=== PATIENT | female | born 1970 | race Caucasian/White ===

== ENCOUNTER 2023-07-05 12:53 | Emergency (ER) | payer BC ==
--- NOTE | 2023-07-05 13:34 | RAD REPORT ---
EXAM DESCRIPTION: Kecia Yip (2 Views)07/05/2023 1:19 pm CLINICAL HISTORY: Cough COMPARISON: None FINDINGS: The lungs appear clear of acute infiltrate. The heart is normal size IMPRESSION: No acute abnormalities displayed
--- OUTSIDE RECORDS SUMMARY | 2023-07-05 13:37 | XMS REPORT | Continuity of Care Document ---
:1970 Author Organization [facility] t Address [address] [facility] [address] [place] [id number] Care Team Providers Name Role Phone Papi_maria esther Attending Clinician Unavailable Obmichellean_maria esther Admitting Clinician Unavailable Payers Payer Name Policy Type Policy Number Effective Date Expiration Date S ource Problems This patient has no known problems. Allergies, Adverse Reactions, Alerts This patient has no known allergies or adverse reactions. Medications This patient has no known medications. Procedures This patient has no known procedures. Encounters Start End Encounter Admission Attending Care Care Encounter Source Date/Time Date/Time Type Type Clinicians Facility Department ID 2021-12-07 2021-12-07 Outpatient Obflor_faustina [facility] [phone] [place] 11:13:00 11:13:00 negro [facility] Program Results This patient has no known results.
[2023-07-05] MEDS ORDERED: dexAMETHasone 10 MG/ML VIAL ONE (14:07)
[2023-07-05] MEDS ORDERED: METOCLOPRAMIDE 10 MG/2mL INJ ONE (14:07)
[2023-07-05] MEDS ORDERED: NA CHLORIDE 0.9% 1,000 ML ONE (14:08)
[2023-07-05] MEDS ORDERED: KETOROLAC 30 MG/ML INJ ONE (14:08)
[2023-07-05] MEDS ORDERED: MAGNESIUM SULFATE 1 gm IVPB 1 GM/100 ML BAG IV ONE (14:08)
[2023-07-05] MEDS ORDERED: NA CHLORIDE 0.9% 50 ML ONE (14:09)
[2023-07-05 14:34] LABS: Lymphocytes % 14.3 % (15.3-44.8); MCV 85.7 fL (80-100); MPV 7.6 fL (7.6-11.3); Platelets 273 thou/uL (152-406); RBC Red Blood Cell Count 4.78 M/uL (3.86-4.86)
[2023-07-05 14:47] LABS: Magnesium 1.9 mg/dL (1.6-2.4); Potassium 3.6 mEq/L (3.5-5.1)
--- NOTE | 2023-07-05 14:52 | ER ---
Nurse's Notes [facility] Name: Awilda Monteiro Age: 52 yrs Sex: Female : 1970 Arrival Date: 07/05/2023 Time: 12:53 Bed 13 Private MD: Diagnosis: SARS-associated coronavirus as the cause of diseases classified elsewhere Presentation: 07/05 13:01 Chief complaint: headache, body aches, upper abdominal pain, and N/V x 2 days. Took hb rapid home test today, COVID +. Coronavirus screen: Client presents with at least one sign or symptom that may indicate coronavirus-19. Standard/surgical mask placed on the client. Provider contacted for isolation considerations. Ebola Screen: No symptoms or risks identified at this time. Initial Sepsis Screen: Does the patient meet any 2 criteria? No. Patient's initial sepsis screen is negative. Does the patient have a suspected source of infection? No. Patient's initial sepsis screen is negative. Risk Assessment: Do you want to hurt yourself or someone else? Patient reports no desire to harm self or others. Onset of symptoms was July 04, 2023. 13:01 Method Of Arrival: Ambulatory hb 13:01 Acuity: JEN 3 hb Triage Assessment: 16:07 GI: Reports. db Historical: - Allergies: 13:02 No Known Allergies; hb - Home Meds: 13:02 None [Active]; hb - PMHx: 13:02 DM2; hb - PSHx: 13:02 Tubal Ligation; Tonsillectomy; hb - Immunization history:: Adult Immunizations up to date. - Social history:: Smoking status: Patient denies any tobacco usage or history of. Screenin:40 [facility] ED Fall Risk Assessment (Adult) History of falling in the last 3 months, db including since admission No falls in past 3 months (0 pts) Confusion or Disorientation No (0 pts) Intoxicated or Sedated No (0 pts) Impaired Gait No (0 pts) Mobility Assist Device Used No (0 pt) Altered Elimination No (0 pt) Score/Fall Risk Level 0 - 2 = Low Risk Oriented to surroundings, Maintained a safe environment. Abuse screen: Denies threats or abuse. Denies injuries from another. Nutritional screening: No deficits noted. Tuberculosis screening: No symptoms or risk factors identified. Assessment: 14:05 Reassessment: Patient appears in no apparent distress at this time. Patient and/or db family updated on plan of care and expected duration. Pain level reassessed. Patient is alert, oriented x 3, equal unlabored respirations, skin warm/dry/pink. PATIENT WITH POSITIVE COVID AND IS VOMITING SINCE LAST NIGHT. General: Appears in no apparent distress. comfortable, Behavior is cooperative, anxious, VOMITING. Pain: Complains of pain in head and abdomen. Neuro: Level of Consciousness is awake, alert, obeys commands, Oriented to person, place, time, situation. GI: Abdomen is flat, non-distended, Pt is actively vomiting. 14:05 Reassessment: Patient appears in no apparent distress at this time. Patient and/or db family updated on plan of care and expected duration. Pain level reassessed. Patient states feeling better. 14:52 Reassessment: PATIENT PENDING FLUIDS TO FINISH FOR DC. db 15:45 Reassessment: Patient appears in no apparent distress at this time. Patient and/or db family updated on plan of care and expected duration. Pain level reassessed. Patient is alert, oriented x 3, equal unlabored respirations, skin warm/dry/pink. Patient states feeling better. Patient states symptoms have improved. Vital Signs: 13:01 BP 156 / 86; Pulse 106; Resp 18; Temp 98.6; Pulse Ox 100% on R/A; Weight 77.11 kg; hb Height 5 ft. 4 in. ; Pain 9/10; 16:03 BP 117 / 76; Pulse 83; Resp 16; Pulse Ox 95% on R/A; db 13:01 Body Mass Index 29.18 (77.11 kg, 162.56 cm) hb 13:01 Pain Scale: Adult hb ED Course: 12:55 Patient arrived in ED. rg4 12:59 Margy Storm PA-C is PHCP. sb4 12:59 Ayden Swenson MD is Attending Physician. sb4 13:02 Triage completed. hb 13:02 Arm band placed on. hb 13:20 Chest Pa And Lat (2 Views) XRAY In Process Unspecified. EDMS 14:10 Inserted saline lock: 22 gauge in right forearm, using aseptic technique. Blood db collected. 14:30 Shameka Connelly, RN is Primary Nurse. db 14:40 Patient has correct armband on for positive identification. Call light in reach. Side db rails up X 1. Pulse ox on. NIBP on. Warm blanket given. 16:06 No provider procedures requiring assistance completed. IV discontinued, intact, db bleeding controlled, No redness/swelling at site. 16:07 Provided Education on: DISCHARGE. db Administered Medications: 14:12 Drug: NS 0.9% IV 1000 ml Route: IV; Rate: 1 bolus; Site: right forearm; db 15:15 Follow up: Response: No adverse reaction; IV Status: Completed infusion; IV Intake: db 1000ml 14:15 Drug: metoCLOPramide IVP 10 mg Route: IVP; Site: right forearm; db 16:07 Follow up: Response: No adverse reaction db 14:17 Drug: Decadron - Dexamethasone IVP 10 mg Route: IVP; Site: right forearm; db 16:08 Follow up: Response: No adverse reaction db 14:18 Drug: Magnesium Sulfate IVPB 1 grams Route: IVPB; Infused Over: 1 hrs; Site: right db forearm; 16:08 Follow up: Response: No adverse reaction; IV Status: Completed infusion; IV Intake: db 100ml 14:31 Drug: Ketorolac IVP 15 mg Route: IVP; Site: right forearm; db 16:08 Follow up: Response: No adverse reaction db Medication: 16:06 VIS not applicable for this client. db Intake: 15:15 IV: 1000ml; Total: 1000ml. db 16:08 IV: 100ml; Total: 1100ml. db Outcome: 14:50 Discharge ordered by sb4 16:06 Discharged to home ambulatory. db 16:06 Condition: stable 16:06 Discharge instructions given to patient, Instructed on discharge instructions, follow up and referral plans. Prescriptions given X 1. 16:08 Patient left the ED. db Signatures: Dispatcher [employer] EDIN Stephanie Barcenas RN RN hb Garcia, Rubi rg4 Shameka Connelly RN RN db Margy Storm PA-C PA-C sb4 Corrections: (The following items were deleted from the chart) 13:03 13:02 Social history: Smoking status: Patient/guardian denies using tobacco, hb hb 14:40 14:05 Reassessment: Patient appears in no apparent distress at this time. Patient db and/or family updated on plan of care and expected duration. Pain level reassessed. Patient is alert, oriented x 3, equal unlabored respirations, skin warm/dry/pink. Patient states feeling better. db
--- NOTE | 2023-07-05 14:52 | EDPHYS ---
Physician Documentation [facility] Name: Awilda oMnteiro Age: 52 yrs Sex: Female : 1970 Arrival Date: 07/05/2023 Time: 12:53 Bed 13 Private MD: ED Physician Ayden Swenson HPI: 07/05 13:40 This 52 yrs old Female presents to ER via Ambulatory with complaints of Vomiting, Body sb4 Aches. 13:40 The patient presents to the emergency department with nausea, vomiting. sb4 13:40 Onset: The symptoms/episode began/occurred 2 day(s) ago. Possible causes: covid. The sb4 symptoms are aggravated by nothing. The symptoms are alleviated by nothing. Associated signs and symptoms: Pertinent positives: abdominal pain, nausea, vomiting, Pertinent negatives: dysuria, fever. The patient has not experienced similar symptoms in the past. The patient has not recently seen a physician. patient been feeling ill for a few days- headache, body aches, nausea, vomiting, abdominal pain. took a home covid test that was positive. Historical: - Allergies: 13:02 No Known Allergies; hb - Home Meds: 13:02 None [Active]; hb - PMHx: 13:02 DM2; hb - PSHx: 13:02 Tubal Ligation; Tonsillectomy; hb - Immunization history:: Adult Immunizations up to date. - Social history:: Smoking status: Patient denies any tobacco usage or history of. ROS: 13:40 Cardiovascular: Negative for chest pain, palpitations, and edema. sb4 13:40 Constitutional: Positive for body aches, fatigue, malaise, poor PO intake. 13:40 ENT: Positive for sinus congestion, sore throat. 13:40 Respiratory: Positive for cough. 13:40 Abdomen/GI: Positive for abdominal pain, nausea and vomiting. 13:40 Neuro: Positive for headache. 13:40 All other systems are negative. Exam: 13:40 Head/Face: Normocephalic, atraumatic. Eyes: Extra-ocular motions intact. Periorbital sb4 areas with no swelling, redness, or edema. ENT: Mucous membranes moist. Cardiovascular: Regular rate and rhythm with a normal S1 and S2. Respiratory: Lungs have equal breath sounds bilaterally, clear to auscultation and percussion. No rales, rhonchi or wheezes noted. No increased work of breathing, no retractions or nasal flaring. Abdomen/GI: Soft, non-tender, no distension. Skin: Warm, dry with normal turgor. Normal color with no rashes, no lesions, and no evidence of cellulitis. MS/ Extremity: Pulses equal, no cyanosis. Neurovascular intact. Full, normal range of motion. 13:40 Constitutional: The patient appears alert, awake, obviously ill, uncomfortable. Vital Signs: 13:01 BP 156 / 86; Pulse 106; Resp 18; Temp 98.6; Pulse Ox 100% on R/A; Weight 77.11 kg; hb Height 5 ft. 4 in. ; Pain 9/10; 16:03 BP 117 / 76; Pulse 83; Resp 16; Pulse Ox 95% on R/A; db 13:01 Body Mass Index 29.18 (77.11 kg, 162.56 cm) hb 13:01 Pain Scale: Adult hb MDM: 13:05 Patient medically screened. sb4 13:40 Differential diagnosis: Nonspecific abd pain, gastritis, viral gastroenteritis, covid, sb4 flu, dehydration. 17:53 Data reviewed: vital signs, nurses notes, lab test result(s), radiologic studies, and sb4 as a result, I will discharge patient. Independent interpretation of the following test(s) in the Emergency Department X-Ray: My interpretation is my interpretation of the chest xray images are no consolidation or pneumothorax. Care significantly affected by the following chronic conditions: Diabetes. Counseling: I had a detailed discussion with the patient and/or guardian regarding the historical points, exam findings, and any diagnostic results supporting the discharge/admit diagnosis, lab results, radiology results, to return to the emergency department if symptoms worsen or persist or if there are any questions or concerns that arise at home. 07/05 13:50 Order name: CBC with Diff; Complete Time: 14:41 sb4 07/05 13:50 Order name: BMP; Complete Time: 14:48 sb4 07/05 13:50 Order name: Magnesium; Complete Time: 14:48 sb4 07/05 13:06 Order name: Chest Pa And Lat (2 Views) XRAY; Complete Time: 13:38 sb4 Administered Medications: 14:12 Drug: NS 0.9% IV 1000 ml Route: IV; Rate: 1 bolus; Site: right forearm; db 15:15 Follow up: Response: No adverse reaction; IV Status: Completed infusion; IV Intake: db 1000ml 14:15 Drug: metoCLOPramide IVP 10 mg Route: IVP; Site: right forearm; db 16:07 Follow up: Response: No adverse reaction db 14:17 Drug: Decadron - Dexamethasone IVP 10 mg Route: IVP; Site: right forearm; db 16:08 Follow up: Response: No adverse reaction db 14:18 Drug: Magnesium Sulfate IVPB 1 grams Route: IVPB; Infused Over: 1 hrs; Site: right db forearm; 16:08 Follow up: Response: No adverse reaction; IV Status: Completed infusion; IV Intake: db 100ml 14:31 Drug: Ketorolac IVP 15 mg Route: IVP; Site: right forearm; db 16:08 Follow up: Response: No adverse reaction db Disposition: 17:56 Co-signature as Attending Physician, Ayden Swenson MD I reviewed the patient's care rn provided by the Advanced Practice Provider and agree with the diagnosis and treatment plan. Disposition Summary: 07/05/23 14:50 Discharge Ordered Location: Home sb4 Problem: new sb4 Symptoms: have improved sb4 Condition: Stable sb4 Diagnosis - SARS-associated coronavirus as the cause of diseases classified elsewhere sb4 Followup: sb4 - With: Emergency Department - When: As needed - Reason: Fever > 102 F, Trouble breathing, Worsening of condition Discharge Instructions: - Discharge Summary Sheet sb4 - 10 Things You Can Do to Manage Your COVID-19 Symptoms at Home - [facility] (05/26/2021) sb4 - COVID-19: Quarantine and Isolation - [facility] (02/07/2022) sb4 - COVID-19: What to Do If You Are Sick - [facility] (01/30/2022) sb4 Forms: - Work release form sb4 - Medication Reconciliation Form sb4 - Thank You Letter sb4 - Antibiotic Education sb4 - Prescription Opioid Use sb4 - Patient Portal Instructions sb4 - Leadership Thank You Letter sb4 Prescriptions: - Medrol (Trung) 4 mg Oral Tablets, Dose Pack - take 1 tablet by ORAL route as directed - follow package instructions; 1 sb4 packet; Refills: 0, Product Selection Permitted Signatures: Dispatcher [employer] EDMS SwensonAyden jeffery MD MD rn Baxter, Heather, RN RN hb Shameka Connelly RN RN Margy Clay PA-C PANila morgan4 Corrections: (The following items were deleted from the chart) 13:03 13:02 Social history: Smoking status: Patient/guardian denies using tobacco, hb hb
[2023-07-05 16:26] VITALS: TEMP 98.6
[2023-07-05 16:29] VITALS: BP 117/76; O2SAT 95
== END 2023-07-05 16:08 | disposition home or self-care (01) ==
LOC: ER 12:53
DX: U07.1 COVID-19 (principal)
CPT/HCPCS: 96365; 85025; 80048; 36415; 83735; 71046; 96375; 99284; 96366; J3475; J2765; J1100; J7030

== ENCOUNTER 2023-07-09 16:11 | Emergency (ER) | payer BC ==
--- OUTSIDE RECORDS SUMMARY | 2023-07-09 16:19 | XMS REPORT | Continuity of Care Document ---
:1970 Author Organization [facility] t Address [address] [facility] [address] [place] [address] Care Team Providers Name Role Phone Daniel Attending Clinician Unavailable Papi_maria esther Admitting Clinician Unavailable Payers Payer Name [...] Clinicians Facility Department ID 2021-12-07 2021-12-07 Outpatient Papi_faustina GREER [facility] [phone] [place] 11:13:00 11:13:00 negro [facility] Program Results This patient has no known results.
[2023-07-09] MEDS ORDERED: ONDANSETRON 4 MG/2 ML VIAL ONE ×2 (17:30→20:32)
[2023-07-09] MEDS ORDERED: NA CHLORIDE 0.9% 1,000 ML ONE (17:31)
[2023-07-09] MEDS ORDERED: FAMOTIDINE 20 MG/2 ML VIAL IV ONE (17:31)
[2023-07-09 17:46] LABS: Absolute Lymphocytes (CBC) 1.5 K/uL (0.7-4.9); Hematocrit 46.9 % (36.0-45.0); Lymphocytes % 34.5 % (15.3-44.8); MCV 85.4 fL (80-100); MPV 8.1 fL (7.6-11.3); Platelets 224 thou/uL (152-406)
[2023-07-09 18:08] LABS: Albumin 3.9 g/dL (3.4-5.0); Bilirubin Total 0.8 mg/dL (0.2-1.0); Protein, Total 8.5 g/dL (6.4-8.2)
[2023-07-09 18:11] LABS: Potassium 3.4 mEq/L (3.5-5.1)
--- NOTE | 2023-07-09 19:49 | RAD REPORT ---
EXAM DESCRIPTION: US - Abdomen Exam Limited - 07/09/2023 7:12 pm CLINICAL HISTORY: ABD PAIN COMPARISON: No comparisons FINDINGS: The gallbladder demonstrates multiple shadowing gallstones. No pericholecystic fluid or ga llbladder wall thickening. The common bile duct is normal measuring 4 mm. The liver demonstrates no findings of intrahepatic biliary dilatation. IMPRESSION: Cholelithiasis.
[2023-07-09 20:05] LABS: Urine Bacteria 20-50 /HPF (<20); Urine Bilirubin NEGATIVE (Negative); Urine Blood Negative (Negative); Urine Clarity Turbid (Clear); Urine Color Yellow (Yellow); Urine Glucose 4+ (Over) (Negative); Urine Mucus 2+ /HPF (None Seen); Urine Protein 1+ (Negative); Urine RBC <5 /HPF (None Seen); Urine Urobilinogen Normal (Normal)
--- NOTE | 2023-07-09 20:16 | EDPHYS ---
Physician Documentation [facility] Name: Awilda Monteiro Age: 52 yrs Sex: Female : 1970 Arrival Date: 07/09/2023 Time: 16:11 Bed 8 Private MD: ED Physician Tony Connolly HPI: 07/09 16:35 This 52 yrs old Female presents to ER via Unassigned with complaints of kb Nausea/Vomiting, Covid+. 16:35 The patient presents to the emergency department with nausea, vomiting, diarrhea. kb Onset: The symptoms/episode began/occurred last week. Possible causes: covid. The symptoms are aggravated by nothing. The symptoms are alleviated by nothing. Associated signs and symptoms: Pertinent positives: abdominal pain, diarrhea, nausea, vomiting. Severity of symptoms: At their worst the symptoms were moderate in the emergency department the symptoms are unchanged. The patient has not experienced similar symptoms in the past. The patient has been recently seen by a physician:. Pt reports she was diagnosed with covid on Saturday and has had nausea and vomiting since then. has been unable to tolerate anything by mouth for 2 days. . Historical: - Allergies: 16:41 No Known Allergies; cm10 - PMHx: 16:41 DM2; cm10 - PSHx: 16:41 Tonsillectomy; tubal ligation; cm10 - Immunization history:: Adult Immunizations unknown. - Social history:: Smoking status: Patient denies any tobacco usage or history of. ROS: 18:32 Constitutional: Negative for fever, chills, and weight loss. kb 18:32 Abdomen/GI: Positive for abdominal pain, nausea, vomiting, and diarrhea. 18:32 All other systems are negative. Exam: 18:32 Constitutional: This is a well developed, well nourished patient who is awake, alert, kb and in no acute distress. Head/Face: Normocephalic, atraumatic. ENT: Moist Mucous membranes Cardiovascular: Regular rate and rhythm with a normal S1 and S2. No gallops, murmurs, or rubs. No pulse deficits. Respiratory: Respirations even and unlabored. No increased work of breathing. Talking in full sentences Skin: Warm, dry with normal turgor. Normal color. MS/ Extremity: Pulses equal, no cyanosis. Neurovascular intact. Full, normal range of motion. Neuro: Awake and alert, GCS 15, oriented to person, place, time, and situation. Moves all extremities. Normal gait. 18:32 Abdomen/GI: Inspection: abdomen appears normal, Bowel sounds: normal, Palpation: soft, in all quadrants, moderate abdominal tenderness, in the right upper quadrant. Vital Signs: 16:39 BP 144 / 93; Pulse 107; Resp 18 S; Temp 97.9(TE); Pulse Ox 100% on R/A; Weight 77.11 cm10 kg; Height 5 ft. 4 in. ; Pain 10/10; 17:39 BP 149 / 89; Pulse 102; Resp 18; Pulse Ox 100% on R/A; ld1 19:43 BP 130 / 91; Pulse 87; Resp 19 S; Pulse Ox 97% on R/A; jw7 16:39 Body Mass Index 29.18 (77.11 kg, 162.56 cm) cm10 16:39 Pain Scale: Adult cm10 MDM: 16:41 Patient medically screened. kb 18:33 Differential diagnosis: Nonspecific abd pain, gastritis, cholecystitis, viral kb gastroenteritis, covid. Data reviewed: vital signs, nurses notes. 20:42 Counseling: I had a detailed discussion with the patient and/or guardian regarding the kb historical points, exam findings, and any diagnostic results supporting the discharge/admit diagnosis, lab results, radiology results, the need for outpatient follow up, a family practitioner, a general surgeon, to return to the emergency department if symptoms worsen or persist or if there are any questions or concerns that arise at home. ED course: Pt tolerating po intake. 07/09 16:37 Order name: CBC with Diff; Complete Time: 17:55 kb 07/09 16:37 Order name: CMP; Complete Time: 18:12 kb 07/09 16:37 Order name: Lipase; Complete Time: 18:12 kb 07/09 16:37 Order name: Urinalysis w/ reflexes; Complete Time: 20:08 kb 07/09 17:55 Order name: US Abdomen Limited; Complete Time: 19:50 kb 07/09 16:37 Order name: IV Saline Lock; Complete Time: 17:30 kb 07/09 16:37 Order name: Labs collected and sent; Complete Time: 17:30 kb 07/09 19:56 Order name: PO challenge; Complete Time: 19:59 kb Administered Medications: 17:30 Drug: NS 0.9% IV 1000 ml Route: IV; Rate: 1 bolus; Site: right forearm; ap3 18:34 Follow up: IV Status: Completed infusion ap3 17:30 Drug: Famotidine IVP 20 mg Route: IVP; Site: right forearm; ap3 18:34 Follow up: Response: No adverse reaction ap3 17:30 Drug: Ondansetron IVP 4 mg Route: IVP; Site: right forearm; ap3 18:34 Follow up: Response: No adverse reaction; Nausea is decreased ap3 20:32 Drug: Ondansetron IVP 4 mg Route: IVP; Site: right wrist; jw7 20:33 Follow up: Response: No adverse reaction jw7 Disposition Summary: 07/09/23 20:15 Discharge Ordered Location: Home kb Condition: Stable kb Diagnosis - SARS-associated coronavirus as the cause of diseases classified elsewhere kb - Dehydration kb - UTI/ Urinary tract infection, site not specified kb - Other cholelithiasis without obstruction kb Followup: kb - With: Emergency Department - When: As needed - Reason: Worsening of condition Followup: kb - With: Private Physician - When: 2 - 3 days - Reason: Recheck today's complaints, Continuance of care, Re-evaluation by your physician Discharge Instructions: - Discharge Summary Sheet kb - Cholelithiasis, [id number] kb - Urinary Tract Infection, Adult, [id number] kb - COVID-19 kb - Viral Illness, Adult kb Forms: - Medication Reconciliation Form kb - Thank You Letter kb - Antibiotic Education kb - Prescription Opioid Use kb - Patient Portal Instructions kb - Leadership Thank You Letter kb Prescriptions: - Macrobid 100 mg Oral Capsule - take 1 capsule by ORAL route every 12 hours for 10 days; 20 capsule; Refills: kb 0, Product Selection Permitted Signatures: Dispatcher [employer] Donna Rick FNP-C FNP-Ckb Prokisch, Amanda RN RN ap3 Annie Green RN RN jw7 eBlkis Mccoy, RN RN cm10
--- NOTE | 2023-07-09 20:16 | ER ---
Nurse's Notes [facility] Name: Awilda Monteiro Age: 52 yrs Sex: Female : 1970 Arrival Date: 07/09/2023 Time: 16:11 Bed 8 Private MD: Diagnosis: SARS-associated coronavirus as the cause of diseases classified elsewhere;Dehydration;UTI/ Urinary tract infection, site not specified;Other cholelithiasis without obstruction Presentation: 07/09 16:39 Chief complaint: Patient states: diagnosed with COVID on Saturday. Has had nausea, cm10 vomiting and diarrhea x2 days. Pt dry heaving in triage. Coronavirus screen: Vaccine status: Patient reports being unvaccinated. Client denies travel out of the [place] in the last 14 days. Ebola Screen: Patient denies travel to an Ebola-affected area in the 21 days before illness onset. No symptoms or risks identified at this time. Initial Sepsis Screen: Does the patient meet any 2 criteria? No. Patient's initial sepsis screen is negative. Does the patient have a suspected source of infection? No. Patient's initial sepsis screen is negative. Risk Assessment: Do you want to hurt yourself or someone else? Patient reports no desire to harm self or others. Onset of symptoms was July 09, 2023. 16:39 Method Of Arrival: Wheelchair cm10 16:39 Acuity: JEN 3 cm10 Triage Assessment: 20:34 GI:. GI: Reports. jw7 Historical: - Allergies: 16:41 No Known Allergies; cm10 - PMHx: 16:41 DM2; cm10 - PSHx: 16:41 Tonsillectomy; tubal ligation; cm10 - Immunization history:: Adult Immunizations unknown. - Social history:: Smoking status: Patient denies any tobacco usage or history of. Screenin:39 [facility] ED Fall Risk Assessment (Adult) History of falling in the last 3 months, ld1 including since admission No falls in past 3 months (0 pts). Abuse screen: Denies threats or abuse. Denies injuries from another. Nutritional screening: No deficits noted. Tuberculosis screening: No symptoms or risk factors identified. Assessment: 17:39 General: Appears in no apparent distress. uncomfortable, Behavior is calm, cooperative, ld1 appropriate for age. Pain: Denies pain. Neuro: Level of Consciousness is awake, alert, obeys commands, Oriented to person, place, time, situation. Cardiovascular: Capillary refill < 3 seconds Patient's skin is warm and dry. Respiratory: Airway is patent Respiratory effort is even, unlabored. GI: Abdomen is flat, non-distended. : No signs and/or symptoms were reported regarding the genitourinary system. EENT: No signs and/or symptoms were reported regarding the EENT system. Derm: No signs and/or symptoms reported regarding the dermatologic system. Musculoskeletal: No signs and/or symptoms reported regarding the musculoskeletal system. 19:00 Reassessment: Patient appears in no apparent distress at this time. No changes from [facility] previously documented assessment. Patient and/or family updated on plan of care and expected duration. Pain level reassessed. Patient is alert, oriented x 3, equal unlabored respirations, skin warm/dry/pink. 20:00 Reassessment: Patient appears in no apparent distress at this time. No changes from [facility] previously documented assessment. Patient and/or family updated on plan of care and expected duration. Pain level reassessed. Patient is alert, oriented x 3, equal unlabored respirations, skin warm/dry/pink. 20:35 Reassessment: Patient appears in no apparent distress at this time. Patient and/or jw7 family updated on plan of care and expected duration. Pain level reassessed. Patient is alert, oriented x 3, equal unlabored respirations, skin warm/dry/pink. Patient states feeling better. Vital Signs: 16:39 BP 144 / 93; Pulse 107; Resp 18 S; Temp 97.9(TE); Pulse Ox 100% on R/A; Weight 77.11 cm10 kg; Height 5 ft. 4 in. ; Pain 10/10; 17:39 BP 149 / 89; Pulse 102; Resp 18; Pulse Ox 100% on R/A; ld1 19:43 BP 130 / 91; Pulse 87; Resp 19 S; Pulse Ox 97% on R/A; jw7 16:39 Body Mass Index 29.18 (77.11 kg, 162.56 cm) cm10 16:39 Pain Scale: Adult cm10 ED Course: 16:15 Patient arrived in ED. rg4 16:16 Donna [facility]C [facility]. kb 16:16 Tony Connolly MD is Attending Physician. kb 16:41 Triage completed. cm10 16:41 Arm band placed on Patient placed in a hallway bed, on a stretcher. cm10 17:16 Cleo Almanzar, DENIZ is Primary Nurse. ap3 17:30 Initial lab(s) drawn, by me, sent to lab. Inserted saline lock: 20 gauge in right ap3 forearm, using aseptic technique. Blood collected. 17:39 Patient has correct armband on for positive identification. Placed in gown. Bed in low ld1 position. Call light in reach. Side rails up X2. monitor tech on. Pulse ox on. NIBP on. Door closed. Noise minimized. Warm blanket given. 17:39 No provider procedures requiring assistance completed. ld1 19:14 US Abdomen Limited In Process Unspecified. EDMS 19:43 Urinalysis w/ reflexes Sent. jw7 19:43 Urine collected: clean catch specimen, clear. jw7 20:33 IV discontinued, intact, bleeding controlled, No redness/swelling at site. Pressure jw7 dressing applied. 20:34 Provided Education on: discharge instructions, and medication. jw7 Administered Medications: 17:30 Drug: NS 0.9% IV 1000 ml Route: IV; Rate: 1 bolus; Site: right forearm; ap3 18:34 Follow up: IV Status: Completed infusion ap3 17:30 Drug: Famotidine IVP 20 mg Route: IVP; Site: right forearm; ap3 18:34 Follow up: Response: No adverse reaction ap3 17:30 Drug: Ondansetron IVP 4 mg Route: IVP; Site: right forearm; ap3 18:34 Follow up: Response: No adverse reaction; Nausea is decreased ap3 20:32 Drug: Ondansetron IVP 4 mg Route: IVP; Site: right wrist; jw7 20:33 Follow up: Response: No adverse reaction jw7 Medication: 17:39 VIS not applicable for this client. ld1 Outcome: 20:15 Discharge ordered by . kb 20:33 Discharged to home ambulatory, with friend. jw7 20:33 Condition: stable 20:33 Discharge instructions given to patient, Instructed on discharge instructions, follow up and referral plans. medication usage, Demonstrated understanding of instructions, follow-up care, medications, Prescriptions given X 1. 20:36 Patient left the ED. jw7 Signatures: Dispatcher [employer] Donna Rick, MORTGAGE FUNDER-C MORTGAGE FUNDER-[place] Loarine Godfrey rg4 Cleo Almanzar, RN RN ap3 Marni Villeda, RN RN ld1 Annie Green, RN RN jw7 Belkis Mccoy, RN RN cm10
[2023-07-09 22:12] VITALS: TEMP 97.9
[2023-07-09 22:15] VITALS: BP 130/91; O2SAT 97
== END 2023-07-09 20:36 | disposition home or self-care (01) ==
LOC: ER 16:11
DX: U07.1 COVID-19 (principal); E86.0 Dehydration; N39.0 Urinary tract infection, site not specified; K80.80 Other cholelithiasis without obstruction
CPT/HCPCS: 85025; 81001; 36415; 83690; 80053; 76705; J2405 ×2; J7030

== ENCOUNTER → 2023-11-05 | Emergency (ER) | payer BC ==
[~2023-11-05] MED LIST: ASPIRIN 81 MG CHEWABLE TABLET ONE; CLOPIDOGREL 75 MG TABLET ONE; FAMOTIDINE 20 MG/2 ML VIAL IV ONE; HEPARIN 5000 UNIT/ML 1 ML VIAL ONE; HEPARIN/D5W 25,000 UNIT/500 ML BAG IV ONE; MORPHINE 4 MG/ML SYR ONE; NA CHLORIDE 0.9% 1,000 ML ONE; ONDANSETRON 4 MG/2 ML VIAL ONE; TENECTEPLASE 50 MG/10 ML VIAL IV ONE
--- OUTSIDE RECORDS SUMMARY | 2023-11-05 22:44 | XMS REPORT | Continuity of Care Document ---
Author Name Unknown Address [address] [place] [phone] th[address] Address [address] [facility] [address] [place] [address] Care Team Providers Care Mark Up Designer Name Role Phone Obflor_maria esther Attending Clinician Unavailabl e Obisesan_adekunbi Admitting Clinician Unavailabl e Payers Payer Name Policy Type Policy Number Effective Date Expirati on Date Source Encounters Start Date/Time End Date/Time Encounter Type Admission Type Attending Clinicians Care Facility Care Department Encounter ID Source 2021-12-07 11:13:00 2021-12-07 11:13:00 Outpatient Obisesan_ad ekunclari [facility] [id number] Syeda da [facility] Program
--- NOTE | 2023-11-05 23:16 | EDPHYS ---
Physician Documentation [facility] Name: Awilda Monteiro Age: 52 yrs Sex: Female : 1970 Arrival Date: 11/05/2023 Time: 22:42 Bed 7 Private MD: ED Physician Dudley Walton HPI: 11/05 22:46 This 52 yrs old Female presents to ER via Unassigned with complaints of chest sp4 pain, abdominal pain . 22:46 82-year-old female with history of gallstones presents with acute onset of chest pain sp4 vomiting and abdominal pain starting 1 hour [employer], on arrival patient is in no acute distress agitated and dry heaving.. Secondary to moderate agitation patient was ordered Geodon 20 mg IM on arrival.. Patient is able to provide basic history stating that she had multiple episodes of vomiting starting 1 hour ago associated with moderate to severe abdominal and chest pain. . 23:08 PMI Allergies: No Known Allergies PMHx: DM2; PSHx: Tonsillectomy; tubal ligation;. sp4 Historical: - Allergies: 22:47 steroids; rv - PMHx: 22:47 DM2; cholelithiasis (tubal ligation); rv - PSHx: 22:47 Tonsillectomy; tubal ligation; rv - Immunization history:: Adult Immunizations up to date. - Social history:: Smoking status: unknown. - Family history:: not pertinent. ROS: 22:46 Constitutional: Negative for fever, chills, and weight loss, positive chest pain, sp4 positive abdominal pain, positive vomiting, positive agitatation 22:46 All other systems are negative, Exam: 22:46 Constitutional: This is a well developed, well nourished patient who is awake, alert, sp4 and in moderate to severe distress and acutely agitated Head/Face: Normocephalic, atraumatic. Eyes: Pupils equal round and reactive to light, extra-ocular motions intact. Lids and lashes normal. Conjunctiva and sclera are not injected. Cornea within normal limits. Periorbital areas with no swelling, redness, or edema. ENT: Nares patent. No nasal discharge, no septal abnormalities noted. Tympanic membranes are normal and external auditory canals are clear. Oropharynx with no redness, swelling, or masses, exudates, or evidence of obstruction, uvula midline. Mucous membranes moist. Neck: Trachea midline, no thyromegaly or masses palpated, and no cervical lymphadenopathy. Supple, full range of motion without nuchal rigidity, or vertebral point tenderness. Chest/axilla: Normal chest wall appearance and motion. Nontender with no deformity. No lesions are appreciated. Cardiovascular: Regular rate and rhythm with a normal S1 and S2. No gallops, murmurs, or rubs. Normal PMI, no JVD. No pulse deficits. Respiratory: Lungs have equal breath sounds bilaterally, clear to auscultation and percussion. No rales, rhonchi or wheezes noted. No increased work of breathing, no retractions or nasal flaring. Abdomen/GI: Soft, with normal bowel sounds. No distension or tympany. No guarding or rebound. positive Diffuse abdominal tenderness Back: No spinal tenderness. No costovertebral tenderness. Female : Normal external genitalia. Skin: Warm, dry with normal turgor. Normal color with no rashes, no lesions, and no evidence of cellulitis. MS/ Extremity: Pulses equal, no cyanosis. Neurovascular intact. Full, normal range of motion. Neuro: Awake and alert, GCS 15, oriented to person, place, time, and situation. Cranial nerves II-XII grossly intact. Motor strength 5/5 in all extremities. Sensory grossly intact. Psych: Awake, alert, with orientation to person, place and time. Behavior, mood, and affect are within normal limits 23:12 ECG was reviewed by the Attending Physician. Time 22:56 patient is EKG sinus rhythm sp4 82 bpm, normal sinus rhythm, left axis deviation, right bundle branch block, ST elevation 3 mm to be 1 , ST elevation 5 mm V2 , ST elevation 1 mm V3. Consistent with acute ST elevated [place] Vital Signs: 22:45 Pulse 117; Resp 17; Temp 98; Pulse Ox 99% ; Weight 76.2 kg; Height 5 ft. 5 in. ; rv 23:00 BP 155 / 111; rv 23:11 Pulse 89; Resp 16; Pulse Ox 100% on 2 lpm NC; kl 23:27 BP 141 / 97; Pulse 82; Resp 12 S; Pulse Ox 100% on 2 lpm NC; jw7 23:30 BP 141 / 97; Pulse 76; kl 23:46 BP 141 / 97; Pulse 71; Resp 17; Temp 98.3; Pulse Ox 99% ; rv 22:45 Body Mass Index 27.96 (76.20 kg, 165.1 cm) rv [place] Coma Score: 23:46 Eye Response: spontaneous(4). Motor Response: obeys commands(6). Verbal Response: rv oriented(5). Total: 15. MDM: 23:11 Differential Diagnosis altered mental status, sepsis, flu, [place]. Data reviewed: vital [facility] signs, nurses notes, lab test result(s), EKG, radiologic studies, plain films. 23:15 Patient medically screened. [facility] 11/05 22:45 Order name: Basic Metabolic Panel [facility] 11/05 22:45 Order name: CBC with Diff [facility] 11/05 22:45 Order name: LFT's [facility] 11/05 22:45 Order name: Magnesium [facility] 11/05 22:45 Order name: NT PRO-BNP [facility] 11/05 22:45 Order name: PT-INR [facility] 11/05 22:45 Order name: Troponin HS [facility] 11/05 22:46 Order name: Lipase [facility] 11/05 22:46 Order name: CRP [facility] 11/05 22:45 Order name: XRAY Chest (1 view) [facility] 11/05 22:45 Order name: EKG; Complete Time: 22:46 [facility] 11/05 22:45 Order name: Cardiac monitoring; Complete Time: 23:00 [facility] 11/05 22:45 Order name: EKG - Nurse/Tech; Complete Time: 23:00 [facility] 11/05 22:45 Order name: IV Saline Lock; Complete Time: 23:00 [facility] 11/05 22:45 Order name: Labs collected and sent; Complete Time: 23:00 [facility] 11/05 22:45 Order name: O2 Per Protocol; Complete Time: 23:01 [facility] 11/05 22:45 Order name: O2 Sat Monitoring; Complete Time: 23:01 [facility] 11/05 22:46 Order name: NPO; Complete Time: 23:00 4 EC:12 Rate is 82 beats/min. Rhythm is regular, Sinus Rhythm. Left axis deviation noted. [place] sp4 interval is normal. QRS interval is prolonged. QT interval is normal. ST Segment is elevated in lead V1, 2-5mm. Clinical impression: Acute [place] and Anterior [place] - acute. Interpreted by me. Reviewed by me. Administered Medications: 22:50 Drug: Geodon IM 20 mg IM once Route: IM; Site: right deltoid; bp 23:36 Follow up: Response: No adverse reaction jw7 23:04 Drug: Ondansetron IVP 8 mg IVP once; over 2 minutes Route: IVP; Site: right antecubital;kl 23:36 Follow up: Response: No adverse reaction jw7 23:08 Drug: Tenecteplase IV 40 mg IV at bolus once {Co-Signature: rv (Diego Canas RN).} jw7 Route: IV; Rate: bolus; Site: right forearm; 23:39 Follow up: Response: No adverse reaction; IV Status: Completed infusion; IV Intake: 8ml jw7 23:09 Drug: morphine IVP or IV 8 mg IVP once over 4 mins Route: IVP; Infused Over: 4 mins; kl Site: right antecubital; 23:37 Follow up: Response: No adverse reaction; Marked relief of symptoms jw7 23:10 Drug: NS 0.9% IV 1000 ml IV at 1 bolus Per protocol; 1000 mL bolus Route: IV; Rate: 1 jw7 bolus; Site: right forearm; 23:39 Follow up: Response: No adverse reaction; IV Status: Infusion continued upon transfer; jw7 IV Intake: 200ml 23:20 Drug: NS 0.9% IV 1000 ml IV at 125 ml/hr continuous Route: IV; Rate: 125 ml/hr; Site: jw7 right forearm; 23:37 Follow up: Response: No adverse reaction; IV Status: Infusion continued upon transfer; jw7 IV Intake: 125ml 23:20 Drug: Famotidine IVP 20 mg IVP once; dilute with 10 mL 0.9% NaCl; give over 2 minutes jw7 Route: IVP; Site: right forearm; 23:39 Follow up: Response: No adverse reaction jw7 23:20 Drug: Aspirin PO Chewable Tablet 324 mg PO once; 81 mg tablets x 4 Route: PO; jw7 23:40 Follow up: Response: No adverse reaction jw7 23:25 Drug: Heparin ([place] Drip) 12 units/kg/[place] - ([place] [address] units, D5W IV 500 ml) IV at jw7 calculated rate Per protocol; Max initial rate 1000 units/hr {Co-Signature: rv (Diego Canas RN).} Route: IV; Rate: calculated rate; Site: right forearm; 23:41 Follow up: Response: No adverse reaction; IV Status: Infusion continued upon transfer; jw7 IV Intake: 20ml 23:26 Drug: HEParin IV 5000 units IV at bolus once {Co-Signature: rv (Diego Canas RN).} jw7 Route: IV; Rate: bolus; Site: right forearm; 23:40 Follow up: Response: No adverse reaction; IV Status: Completed infusion; IV Intake: jw7 0.8ml 23:31 Drug: Clopidogrel PO 300 mg PO once Route: PO; jw7 23:40 Follow up: Response: No adverse reaction jw7 23:37 Not Given (Other Intervention Used): mg IVP once jw7 Disposition Summary: 11/05/23 23:15 Transfer Ordered Notes: Transfer Location: [facility] sp4 Reason: Higher level of care sp4 Condition: Stable sp4 Problem: new sp4 Symptoms: have improved sp4 Accepting Physician: Dr. Rivas Cardiology at [facility] (11/05/23 23:48) rv Diagnosis - ST elevation (STEMI) myocardial infarction involving other sites sp4 - Acute ST elevated [place] sp4 Forms: - Medication Reconciliation Form sp4 - SBAR form sp4 Signatures: Dispatcher [employer] EDMaegan Richardson RN RN kl Peltier, Brian RN Diego West, Annie Espino RN RN Dudley Blum MD MD spDiego Claros RN rv Corrections: (The following items were deleted from the chart) 23:14 22:46 Chest Abdomen Pelvis W Con+CT.RAD.BRZ ordered. EDMS EDMS 23:15 23:[address] elevated [place], sp4 sp4 23:48 23:15 Dr. Rivas Cardiology at [facility] sp4 rv
--- NOTE | 2023-11-05 23:16 | ER ---
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 Coronavirus screen: At this time, the client does not indicate any symptoms associated with coronavirus-19. Ebola Screen: No symptoms or risks identified at this time. Initial Sepsis Screen: Does the patient meet any 2 criteria? No. Patient's initial sepsis screen is negative. Does the patient have a suspected source of infection? No. Patient's initial sepsis screen is negative. Risk Assessment: Do you want to hurt yourself or someone else? Patient reports no desire to harm self or others. Onset of symptoms was November 05, 2023. 22:45 Method Of Arrival: Wheelchair rv 22:45 Acuity: JEN 3 rv Triage Assessment: 22:47 General: Appears uncomfortable, Behavior is crying. Pain: Complains of pain in chest rv and abdomen. Neuro: Level of Consciousness is awake, alert, obeys commands, Oriented to person, place, time, situation. Cardiovascular: Capillary refill < 3 seconds Patient's skin is warm and dry. Respiratory: Airway is patent Respiratory effort is even, unlabored. Derm: Skin is intact. Historical: - Allergies: 22:47 steroids; rv - PMHx: 22:47 DM2; cholelithiasis (tubal ligation); rv - PSHx: 22:47 Tonsillectomy; tubal ligation; rv - Immunization history:: Adult Immunizations up to date. - Social history:: Smoking status: unknown. - Family history:: not pertinent. Screenin:50 [facility] ED Fall Risk Assessment (Adult) History of falling in the last 3 months, rv including since admission No falls in past 3 months (0 pts) Score/Fall Risk Level 0 - 2 = Low Risk Oriented to surroundings, Maintained a safe environment, Educated pt \T\ family on fall prevention, incl call for assistance when getting out of bed, Assessed \T\ reinforced patient's understanding of fall precautions. Abuse screen: Denies threats or abuse. Denies injuries from another. Nutritional screening: No deficits noted. Tuberculosis screening: No symptoms or risk factors identified. Assessment: 23:27 Reassessment: No changes from previously documented assessment. Patient and/or family jw7 updated on plan of care and expected duration. Pain level reassessed. Patient is alert, oriented x 3, equal unlabored respirations, skin warm/dry/pink. Patient states symptoms have improved. 23:47 Reassessment: report given to Paula [facility]. rv Vital Signs: 22:45 Pulse 117; Resp 17; Temp 98; Pulse Ox 99% ; Weight 76.2 kg; Height 5 ft. 5 in. ; rv 23:00 BP 155 / 111; rv 23:11 Pulse 89; Resp 16; Pulse Ox 100% on 2 lpm NC; kl 23:27 BP 141 / 97; Pulse 82; Resp 12 S; Pulse Ox 100% on 2 lpm NC; jw7 23:30 BP 141 / 97; Pulse 76; kl 23:46 BP 141 / 97; Pulse 71; Resp 17; Temp 98.3; Pulse Ox 99% ; rv 22:45 Body Mass Index 27.96 (76.20 kg, 165.1 cm) rv [place] Coma Score: 23:46 Eye Response: spontaneous(4). Motor Response: obeys commands(6). Verbal Response: rv oriented(5). Total: 15. ED Course: 22:44 Patient arrived in ED. rv1 22:44 Dudley Walton MD is Attending Physician. sp4 22:45 Diego Canas RN is Primary Nurse. rv 22:46 Triage completed. rv 22:50 Arm band placed on right wrist. rv 22:50 Patient has correct armband on for positive identification. Client placed on continuous rv cardiac and pulse oximetry monitoring. NIBP monitoring applied. unit trust manager on. 22:51 Inserted saline lock: 20 gauge in right forearm, using aseptic technique. Blood rv collected. 22:51 No provider procedures requiring assistance completed. rv 22:59 Initiated transfer with [facility] at [facility]. rv1 23:10 Called [employer] for pt transportation. rv1 23:18 XRAY Chest (1 view) In Process Unspecified. EDMS 23:[address] Rivas to [facility] [address] [address] Rm 6. rv1 23:43 Notified ED physician of a critical lab result(s). troponin 257.2. kl 23:48 Patient transferred, IV remains in place. rv Administered Medications: 22:50 Drug: Geodon IM 20 mg IM once Route: IM; Site: right deltoid; bp 23:36 Follow up: Response: No adverse reaction jw7 23:04 Drug: Ondansetron IVP 8 mg IVP once; over 2 minutes Route: IVP; Site: right antecubital;kl 23:36 Follow up: Response: No adverse reaction jw7 23:08 Drug: Tenecteplase IV 40 mg IV at bolus once {Co-Signature: rv (Diego Canas RN).} jw7 Route: IV; Rate: bolus; Site: right forearm; 23:39 Follow up: Response: No adverse reaction; IV Status: Completed infusion; IV Intake: 8ml jw7 23:09 Drug: morphine IVP or IV 8 mg IVP once over 4 mins Route: IVP; Infused Over: 4 mins; kl Site: right antecubital; 23:37 Follow up: Response: No adverse reaction; Marked relief of symptoms jw7 23:10 Drug: NS 0.9% IV 1000 ml IV at 1 bolus Per protocol; 1000 mL bolus Route: IV; Rate: 1 jw7 bolus; Site: right forearm; 23:39 Follow up: Response: No adverse reaction; IV Status: Infusion continued upon transfer; jw7 IV Intake: 200ml 23:20 Drug: NS 0.9% IV 1000 ml IV at 125 ml/hr continuous Route: IV; Rate: 125 ml/hr; Site: jw7 right forearm; 23:37 Follow up: Response: No adverse reaction; IV Status: Infusion continued upon transfer; jw7 IV Intake: 125ml 23:20 Drug: Famotidine IVP 20 mg IVP once; dilute with 10 mL 0.9% NaCl; give over 2 minutes jw7 Route: IVP; Site: right forearm; 23:39 Follow up: Response: No adverse reaction jw7 23:20 Drug: Aspirin PO Chewable Tablet 324 mg PO once; 81 mg tablets x 4 Route: PO; jw7 23:40 Follow up: Response: No adverse reaction jw7 23:25 Drug: Heparin ([place] Drip) 12 units/kg/[place] ([place] [address] units, D5W IV 500 ml) IV at jw7 calculated rate Per protocol; Max initial rate 1000 units/hr {Co-Signature: Diego Pisano RN).} Route: IV; Rate: calculated rate; Site: right forearm; 23:41 Follow up: Response: No adverse reaction; IV Status: Infusion continued upon transfer; jw7 IV Intake: 20ml 23:26 Drug: HEParin IV 5000 units IV at bolus once {Co-Signature: Diego Pisano RN).} jw7 Route: IV; Rate: bolus; Site: right forearm; 23:40 Follow up: Response: No adverse reaction; IV Status: Completed infusion; IV Intake: jw7 0.8ml 23:31 Drug: Clopidogrel PO 300 mg PO once Route: PO; jw7 23:40 Follow up: Response: No adverse reaction jw7 23:37 Not Given (Other Intervention Used): [id number] mg IVP once jw7 Medication: 22:50 VIS not applicable for this client. rv Intake: 23:37 IV: 125ml; Total: 125ml. jw7 23:39 IV: 200ml; Total: 325ml. jw7 23:39 IV: 8ml; Total: 333ml. jw7 23:40 IV: 1ml; Total: 334ml. jw7 23:41 IV: 20ml; Total: 354ml. jw7 Outcome: 23:15 ER care complete, transfer ordered by MD. [email or web address] 23:[address] [facility], Transfer form completed. rv X-rays sent w/ patient. 23:47 Condition: good 23:47 Instructed on the need for transfer, 23:48 Patient left the ED. rv Signatures: Dispatcher [employer] EDMaegan Richardson RN RN kl Peltier, Brian RN Diego West RN Annie Espino RN RN jw7 Villegas, Rebecca rv1 Dudley Walton MD MD sp4 Diego Canas RN rv
[2023-11-05 23:24] LABS: Absolute Lymphocytes (CBC) 5.2 K/uL (0.7-4.9); Hematocrit 44.6 % (36.0-45.0); Lymphocytes % 29.2 % (15.3-44.8); MPV 8.5 fL (7.6-11.3); Platelets 357 thou/uL (152-406); RBC Red Blood Cell Count 5.12 M/uL (3.86-4.86)
[2023-11-05 23:29] LABS: Protime INR 1.09
[2023-11-05 23:43] LABS: ALT/SGPT 24 U/L (13-56); AST/SGOT 17 U/L (15-37); Alkaline Phosphatase 81 U/L (45-117); BUN Blood Urea Nitrogen 7 mg/dL (7-18); Bicarbonate 26 mEq/L (21-32); Bilirubin Direct 0.1 mg/dL (0-0.2); Bilirubin Indirect, Calculated 0.3 mg/dL (0.2-0.8); Bilirubin Total 0.4 mg/dL (0.2-1.0); C-Reactive Protein < 2.90 mg/L (<3.00); Glomerular Filtration Rate 69 ml/min (=/>90); Glucose Level 271 mg/dL (74-106); Lipase 46 U/L (13-75); Magnesium 1.8 mg/dL (1.6-2.4); NT PRO-BNP 1113 pg/mL (<125); Protein, Total 8.5 g/dL (6.4-8.2); Sodium Level 138 mEq/L (136-145); Troponin High Sensitivity 257.2 pg/mL (<58.9)
[2023-11-06 06:18] VITALS: BP 141/97
[2023-11-06 06:24] VITALS: TEMP 98.3; O2SAT 99
--- NOTE | 2023-11-06 11:43 | RAD REPORT ---
EXAM DESCRIPTION: RAD - Chest Single View - 11/05/2023 11:16 pm CLINICAL HISTORY: The patient is 52 years old and is Female; CHEST PAIN TECHNIQUE: Frontal view of the chest. COMPARISON: No relevant prior studies available. FINDINGS: Lungs: Unremarkable. No consolidation. Pleural space: Unremarkable. No pneumothorax. Heart: Unremarkable. Mediastinum: Unremarkable. Normal mediastinal contour. Bones/joints: No acute findings. Soft tissues: Linear metallic density overlying the lower right neck. IMPRESSION: No acute findings in the chest. Electronically signed by: Rene Pierce MD 11/05/2023 11:39 PM [facility] Due to temporary technical issues with the PACS/Fluency reporting system, reports are being signed by the in house radiologist without review as a courtesy to ensure prompt reporting. The interpreting r adiologist is fully responsible for the content of the report.
--- NOTE | 2023-11-07 13:25 | EKG ---
Test Date: 2023-11-05 Test Time: 22:56:33 Cancer Program Consultant: PRINCE MEASUREMENT RESULTS: Intervals: Rate: 82 [place]: 160 QRSD: 156 QT: 422 QTc: 493 [place]: P: 57 [place]: 160 QRS: -49 T: 56 INTERPRETIVE STATEMENTS: Age and gender specific ECG analysis Sinus rhythm with marked sinus arrhythmia Left axis deviation Right bundle branch block ST elevation, consider anterior injury or acute infarct ACUTE ND / STEMI Abnormal ECG No previous ECG available for comparison Electronically Signed On 11-07-23 13:21:55 INFORMATION TECHNOLOGY PROFESSOR by Keon Tomlinson
== END ==
LOC: ER 22:42
DX: I21.29 ST elevation (STEMI) myocardial infarction involving other sites (principal); E11.9 Type 2 diabetes mellitus without complications; Z88.8 Allergy status to other drugs, medicaments and biological substances
CPT/HCPCS: 92977; 93005; 85025; 80048; 36415; 83735; 85610; 80076; 84484; 83690; 83880; 86140; 71045; 96372; 99285; J1644; J3101; J2405; J7030 ×2